=== PATIENT | female | born 1975 | race Caucasian/White ===

== ENCOUNTER 2023-10-04 16:04 | Outpatient (AMB) | payer OTHER, SELFPAY ==
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
[2023-10-04 16:19] VITALS: BP 160/92; PULSE 90; O2SAT 96; BMI 30.3
== END 2023-10-04 17:16 | disposition home or self-care (01) ==
PROVIDERS: PCP Internal Medicine; Visit Provider Internal Medicine
DX: M54.2 Cervicalgia (principal)
CPT/HCPCS: 99213